=== PATIENT | male | born 1995 | race Caucasian/White ===

== ENCOUNTER → 2016-10-24 | Outpatient (CLI) | payer OTHER | END | disposition home or self-care (01) | LOC: C.RDSM 10:08 | PROVIDERS: ATTEND Family Medicine | DX: S43.431A Superior glenoid labrum lesion of right shoulder, initial encounter (principal); X58.XXXA Exposure to other specified factors, initial encounter ==

== ENCOUNTER → 2016-10-31 | Outpatient (CLI) | payer OTHER ==
--- NOTE | 2016-10-31 11:54 | DIAGNOSTIC IMAGING REPORT ---
RIGHT SHOULDER INJECTION UNDER FLUOROSCOPIC GUIDANCE CLINICAL HISTORY: Right shoulder pain. Overuse/repetitive trauma injury in a gymnast. PROCEDURE: The risks, benefits, and alternatives to the procedure were discussed with the patient. Written informed consent was obtained. The patient was placed supine on the fluoroscopy table, and a right shoulder injection was performed under fluoroscopic guidance. The area was prepped and draped in the usual sterile fashion. The skin and soft tissues anesthetized with local 1% lidocaine. The right shoulder joint was accessed utilizing a 22-gauge needle, and approximately 5 cc of a mixture of gadolinium contrast, Optiray 300, and saline was injected into the joint space under fluoroscopic guidance. There was normal distention of the capsule. The procedure was well tolerated and without immediate complication. The patient was then transferred to MRI for MR arthrography. FLUOROSCOPY TIME: 51 seconds. IMPRESSION: Injection of the right shoulder under fluoroscopic guidance. Electronically signed by: Winston Day M.D. 10/31/2016 11:53 AM Dictated Date/Time: 10/31/2016 11:52 AM
--- NOTE | 2016-10-31 12:44 | DIAGNOSTIC IMAGING REPORT ---
RIGHT SHOULDER MRI with INTRA-ARTICULAR CONTRAST HISTORY: SHOULDER PAIN Right TECHNIQUE: Multiplanar multisequence MRI of the right shoulder was performed following the intra-articular injection of contrast. COMPARISON STUDY: Right shoulder 10/24/2016. FINDINGS: AC joint: Intact Rotator cuff: Best seen on coronal sequence image 8 there is a small amount of increased signal within the distal infraspinatus tendon consistent with a small bursal surface partial tear. This measures 6 mm. The supraspinatus, subscapularis, teres minor tendons are intact. No fluid within the subacromial/subdeltoid bursa. Labrum: Abnormal signal and contrast within the superior labrum consistent with a SLAP tear. Biceps tendon: Intact Bones: Intact Cartilage: Intact IMPRESSION: 1. SLAP tear. 2. Small partial bursal surface tear at the distal infraspinatus tendon. No evidence for full-thickness rotator cuff tear. Electronically signed by: Marquis Desai M.D. 10/31/2016 12:43 PM Dictated Date/Time: 10/31/2016 12:35 PM
== END ==
LOC: C.MRIBC 10:57
PROVIDERS: ATTEND Family Medicine
DX: S43.431A Superior glenoid labrum lesion of right shoulder, initial encounter (principal); X58.XXXA Exposure to other specified factors, initial encounter